=== PATIENT | male | born 1965 | race Two or more races ===

== ENCOUNTER 2021-11-13 07:09 | Day surgery (SDC) | payer BC, MEDICAID ==
[~2021-11-13 07:09] MED LIST: Sodium Chloride 0.9% 10 ML Syringe FLUSH PRN
[2021-11-13] MEDS ORDERED: Propofol 200 MG/20 ML SDV IV ONE (07:10)
[2021-11-13] MEDS ORDERED: Midazolam 1 MG/ML 2 ML SDV IV ONE (07:10)
[2021-11-13] MEDS: Lactated Ringers 1,000 ML IV SCH (08:00)
[2021-11-13 09:25] VITALS: BP 110/77; PULSE 85
== END 2021-11-13 09:37 | disposition home or self-care (01) ==
LOC: FB.SDS 07:09 → EDSEX 08:15 → MERGE 08:15 → FB.SDS 09:37
PROVIDERS: ATTEND Surgery
DX: D12.0 Benign neoplasm of cecum (principal); K57.30 Diverticulosis of large intestine without perforation or abscess without bleeding; E11.9 Type 2 diabetes mellitus without complications; E78.5 Hyperlipidemia, unspecified; E03.9 Hypothyroidism, unspecified; I10 Essential (primary) hypertension; G47.30 Sleep apnea, unspecified; Z87.891 Personal history of nicotine dependence; Z79.899 Other long term (current) drug therapy; Z98.890 Other specified postprocedural states; Z20.822 Contact with and (suspected) exposure to COVID-19
CPT/HCPCS: 82947; 88305; J2250; J2704; J7120